=== PATIENT | female | born 1945 | race Caucasian/White ===

== ENCOUNTER 2016-09-14 21:46 | Observation (INO) | payer MEDICARE, OTHER ==
[~2016-09-14] VITALS: Ht 149.9 cm; Wt 50.0 kg
[~2016-09-14 21:46] MED LIST: ANUS25SU PR; ATEN-102 PO; ATOR40TA PO; CHOL1CAP6 PO; CIPR500T2 PO; CLON0.2T PO; FERR324T4 PO; HYDR-3535 PO; LORA-474 PO; ONDA4 PO; OSCA200T PO; PERI8.6T PO; PREPCRE TOP; TAB-TAB PO; TRAM100T19 PO
--- NOTE | 2016-09-14 22:23 | PD ---
HPI Chief Complaint: HYPERKALEMIA Time Seen by Provider: 22:23 Travel History International Travel<30 days: No Contact w/Intl Traveler<30days: No History of Present Illness HPI 71-year-old female with a history of hypertension and hyperlipidemia presents to the emergency department from her long term facility for evaluation of hyperkalemia. Per the documentation from the long term facility the patient had a potassium of 6.9 at the facility today therefore she was sent here for further treatment and evaluation. She denies any complaints. Denies any fever , chills, nausea, vomiting, chest pain, shortness of breath, lightheadedness, dizziness, diarrhea. States that she was taking potassium supplementation until today. No other complaints. PFSH Past Medical History Arthritis: Yes Cancer: No Cardiovascular Problems: No Cerebrovascular Accident: No Endocrine: No Gastrointestinal Disorders: Yes (CONSTIPATION) GERD: Yes Genitourinary: No Hypertension: Yes Musculoskeletal: Yes Neurologic: No Psychiatric: No Reproductive: No Respiratory: No Migraines: No Seizures: No Past Surgical History Abdominal Surgery: No Cardiac Surgery: No Genitourinary Surgery: No Gynecologic Surgery: No Neurologic Surgery: Yes (RIGHT CAROTID ENDARTERECTOMY 2009) Thoracic Surgery: No Other Surgery: Yes Social History Alcohol Use: No Tobacco Use: No Substance Use: No Allergies-Medications (Allergen,Severity, Reaction): Coded Allergies: Maxzide (Verified Allergy, Intermediate, Depletes potasium level, 10/05/15) Succinylcholine (Verified Allergy, Intermediate, unable to waike up after that medicine, 10/05/15) *MDRO Multi-Drug Resistant Organism (Verified Adverse Reaction, Unknown, ) 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 Reported Meds & Prescriptions Reported Meds & Active Scripts Active Atorvastatin 40 mg (Atorvastatin Calcium) 40 Mg Tab 40 Mg PO HS Lortab 10 mg/325 mg (Hydrocodone/Acetaminophen 10 mg/325 mg) 1 Tab 1 Tab PO Q4H PRN Ativan (Lorazepam) 1 Mg Tab 1 Mg PO TID PRN Tramadol HCl ER (Tramadol HCl) 100 Mg Tab 100 Mg PO Q8H PRN Ciprofloxacin HCl (Ciprofloxacin) 500 Mg Tab 500 Mg PO Q12HR Clonidine Hcl (Clonidine HCl) 0.2 Mg Tab 0.2 Mg PO HS Huong-Colace 8.6-50 mg (Sennosides-Docusate Sodium) 1 Tab Tab 2 Tab PO HS Reported Anusol-Hc (Hydrocortisone Acetate) 25 Mg Sup 25 Mg NM QID PRN Preparation H (Yqxtdyije-Ivwcypbegmjkw-Tufkyu) H Cre 1 Applic TOP BID PRN Zofran 4 Mg Tab (Ondansetron Hcl) 4 Mg Tab 4 Mg PO TID PRN Ferrous Sulfate 325 Mg Tab 325 Mg PO TID Vitamin D-3 (Cholecalciferol) 1,000 Unit Tab 1,000 Unit PO DAILY Oscal 500/200 D-3 (Calcium Carbonate-Vitamin D) 1 Tab Tab 2 Tab PO DAILY Multivitamin (Multivitamins) 1 Tab Tab 1 Tab PO DAILY Atenolol 50 Mg Tab 50 Mg PO BID Review of Systems Except as stated in HPI: all other systems reviewed are Neg Physical Exam Narrative GENERAL: Well-nourished and well-developed pleasant female patient in no acute distress who is nontoxic appearing. SKIN: Warm and dry. HEAD: Normocephalic and atraumatic. EYES: No injection, drainage, or hyphema noted. PERRLA. EOMI. ENT: No nasal drainage noted. Oropharynx is clear. NECK: Supple and the trachea is midline. CARDIOVASCULAR: Regular rate and rhythm. RESPIRATORY: Breath sounds are equal bilaterally with no accessory muscle use, wheezing, rhonchi, or crackles. GASTROINTESTINAL: Abdomen is soft, non-tender, and nondistended. MUSCULOSKELETAL: No obvious deformities, swelling, cyanosis, or ecchymosis is present throughout the upper and lower extremities. Patient has full range of motion without any signs of neurovascular compromise. NEUROLOGICAL: Awake, alert, and oriented. Normal speech and gait. Cranial nerves are grossly intact. Data Data Orders Basic Metabolic Panel (Bmp) (09/14/16 22:21) Complete Blood Count With Diff (09/14/16 22:21) Electrocardiogram (09/14/16 22:21) Iv Access Insert/Monitor (09/14/16 22:21) Ecg Monitoring (09/14/16 22:21) Oximetry (09/14/16 22:21) MDM Medical Decision Making Medical Screen Exam Complete: Yes Emergency Medical Condition: Yes Differential Diagnosis Hyperkalemia versus lab error versus dehydration versus other Narrative Course 71-year-old female presents to the emergency department for evaluation of hyperkalemia. Patient is afebrile, vital signs are stable. She has no medical complaints to report at this time. Physical examination is unremarkable. She was sent here by her long term facility for potassium of 6.9. EKG shows normal sinus rhythm with no acute ST elevations or depressions, no peaked T waves. We'll repeat the lab values. Patient signed out to my attending physician Dr. Gong who will assume care of the patient and disposition. Bianca Quintero Sep 14, 2016 22:23
[2016-09-14] MEDS ORDERED: MULT-120 PO (22:29)
[2016-09-14] MEDS ORDERED: LYRI50CA PO (22:29)
[2016-09-14] MEDS ORDERED: K-TA10TA PO (22:29)
[2016-09-14] MEDS ORDERED: SERT-132 PO (22:29)
[2016-09-14] MEDS ORDERED: ATOR40TA16 PO (22:29)
[2016-09-14] MEDS ORDERED: PRESCAP PO (22:29)
[2016-09-14] MEDS ORDERED: MAGN400T2 PO (22:29)
[2016-09-14] MEDS ORDERED: VITA100032 PO (22:29)
[2016-09-14] MEDS ORDERED: LORA1TAB12 PO (22:29)
[2016-09-14] MEDS ORDERED: ATEN25TA PO (22:29)
[2016-09-14] MEDS ORDERED: OSCA200T PO (22:29)
[2016-09-14] MEDS ORDERED: FENT25DI T-DERMAL (22:29)
[2016-09-14] MEDS ORDERED: LOPE2TAB3 PO (22:29)
[2016-09-14] MEDS ORDERED: ZOFR4TAB PO (22:29)
[2016-09-14] MEDS ORDERED: OXYC1TAB36 PO (22:29)
[2016-09-14] MEDS ORDERED: FERR325T PO (22:29)
[2016-09-14 22:34] VITALS: BP 148/75; PULSE 69; RESP 17; O2SAT 97
[2016-09-14 22:41] VITALS: BP 148/75; PULSE 68; RESP 15; O2SAT 97
[2016-09-14 23:25] LABS: BICARBONATE 29.7 MEQ/L (21.0-32.0)
[2016-09-14 23:38] LABS: POTASSIUM 5.3 MEQ/L (3.5-5.1)
--- NOTE | 2016-09-14 23:40 | PD ---
Data Data Last Documented VS Vital Signs Date Time Temp Pulse Resp B/P Pulse Ox O2 Delivery O2 Flow Rate FiO2 09/14/16 22:41 68 15 148/75 97 Room Air Orders Basic Metabolic Panel (Bmp) (09/14/16 22:21) Complete Blood Count With Diff (09/14/16 22:21) Electrocardiogram (09/14/16 22:21) Iv Access Insert/Monitor (09/14/16 22:21) Ecg Monitoring (09/14/16 22:21) Oximetry (09/14/16 22:21) Potassium, Serum (K) (09/14/16 23:45) Oxycodone-Acetamin 5-325 Mg (Percocet (09/15/16 00:30) Sodium Polysty Sulfate Liq (Kayexalate L (09/15/16 02:30) Calcium Gluconate Inj (Calcium Gluconate (09/15/16 02:30) Insulin Human Regular Inj (Novolin R Inj (09/15/16 02:45) Dextrose 50% In Radha (Syr) Inj (D50w (Syr (09/15/16 02:45) Admit Order (Ed Use Only) (09/15/16 ) Place In Observation (09/15/16 ) Vital Signs (Adult) Q4H (09/15/16 02:34) Activity Oob With Assistance (09/15/16 02:34) Manager Regional / Telemetry .CONTINUOUS (09/15/16 02:34) Diet Regular Basic (09/15/16 Breakfast) Sodium Chloride 0.9% Flush (Ns Flush) (09/15/16 02:45) Sodium Chloride 0.9% Flush (Ns Flush) (09/15/16 09:00) Ondansetron Inj (Zofran Inj) (09/15/16 02:45) Bisacodyl Supp (Dulcolax Supp) (09/15/16 02:45) Comprehensive Metabolic Panel (09/15/16 06:00) Complete Blood Count With Diff (09/15/16 06:00) Scd Bilateral/Knee High MADDIE.BID (09/15/16 02:34) Justo Bilateral/Knee High MADDIE.QSHIFT (09/15/16 02:34) Acetaminophen (Tylenol) (09/15/16 02:45) Morphine Inj (Morphine Inj) (09/15/16 02:45) Atorvastatin (Lipitor) (09/15/16 21:00) Fentanyl 25 Mcg Patch.72 Hr (Duragesic (09/15/16 02:45) Ferrous Sulfate (Ferrous Sulfate) (09/15/16 09:00) Lorazepam (Ativan) (09/15/16 02:45) Multivitamins-Minerals Therap (Theragran (09/15/16 09:00) Oxycodone-Acetamin 10-325 Mg (Percocet 1 (09/15/16 02:45) Pregabalin (Lyrica) (09/15/16 09:00) Sertraline (Zoloft) (09/15/16 09:00) Labs Laboratory Tests Test 09/14/16 09/14/16 09/15/16 22:45 23:40 00:35 Sodium Level 139 MEQ/L Potassium Level 5.3 MEQ/L 5.9 MEQ/L Chloride Level 102 MEQ/L Carbon Dioxide Level 29.7 MEQ/L Anion Gap 7 MEQ/L Blood Urea Nitrogen 14 MG/DL Creatinine 0.67 MG/DL Estimat Glomerular Filtration 87 ML/MIN Rate Random Glucose 85 MG/DL Calcium Level 8.9 MG/DL White Blood Count 7.9 TH/MM3 Red Blood Count 3.58 MIL/MM3 Hemoglobin 11.7 GM/DL Hematocrit 34.7 % Mean Corpuscular Volume 96.9 FL Mean Corpuscular Hemoglobin 32.8 PG Mean Corpuscular Hemoglobin 33.8 % Concent Red Cell Distribution Width 13.0 % Platelet Count 170 TH/MM3 Mean Platelet Volume 9.6 FL Neutrophils (%) (Auto) 67.8 % Lymphocytes (%) (Auto) 23.4 % Monocytes (%) (Auto) 6.4 % Eosinophils (%) (Auto) 2.0 % Basophils (%) (Auto) 0.4 % Neutrophils # (Auto) 5.3 TH/MM3 Lymphocytes # (Auto) 1.8 TH/MM3 Monocytes # (Auto) 0.5 TH/MM3 Eosinophils # (Auto) 0.2 TH/MM3 Basophils # (Auto) 0.0 TH/MM3 CBC Comment DIFF FINAL Differential Comment MDM Supervised Visit with MARIANGEL: Yes Narrative Course Patient care assumed from Spring Quintero at 2300. This is a 71-year-old female presents from the [facility] facility for evaluation of hyperkalemia. She is asymptomatic except for her chronic low back pain. Percocet was ordered. Initial potassium in the emergency department was 5.3 with slight hemolysis noted, recheck is 5.9 with no hemolysis noted. An EKG was performed and shows no changes consistent with hyperkalemia. Patient was given calcium chloride as well as Kayexalate. Discussed with Dr. Voss for admission. She is asymptomatic for her hyperkalemia Diagnosis Primary Impression: Hyperkalemia Admitting Information Admitting Physician Requests: Observation Scripts Fentanyl Patch 72 HR 25 Mcg/Hr Patch25 Mcg T-DERMAL Q72H #3 PATCH Ref 0 Prov:Jamil Das MD 09/15/16 Lorazepam 1 Mg Tab1 Mg PO Q8H PRN (ANXIETY) #5 TAB Ref 0 Prov:Jamil Das MD 09/15/16 Oxycodone-Acetaminophen 10-325 mg Tab1 Tab PO q8 PRN (PAIN) #10 TAB Ref 0 Prov:Jamil Das MD 09/15/16 Condition: Stable Rip Gong MD Sep 14, 2016 23:40
[2016-09-14 23:49] LABS: AUTOMATED NEUTROPHIL # 5.3 TH/MM3 (1.8-7.7); BASOPHIL % 0.4 % (0.0-2.0); EOSINOPHIL # 0.2 TH/MM3 (0-0.4); HEMATOCRIT 34.7 % (35.0-46.0); HEMO FLAGS DIFF FINAL; LYMPH % 23.4 % (9.0-44.0); LYMPHOCYTE # 1.8 TH/MM3 (1.0-4.8); MEAN CELL VOLUME 96.9 FL (80.0-100.0); MEAN CORPUSCULAR HEMOGLOBIN 32.8 PG (27.0-34.0); MEAN CORPUSCULAR HGB CONC 33.8 % (32.0-36.0); MONO % 6.4 % (0.0-8.0); NEUT % 67.8 % (16.0-70.0); PLATELET COUNT 170 TH/MM3 (150-450); RED BLOOD COUNT 3.58 MIL/MM3 (4.00-5.30); WHITE BLOOD COUNT 7.9 TH/MM3 (4.0-11.0)
[2016-09-15] MEDS ORDERED: oxyCODONE/ACETAMINOPHEN 5 MG/325 MG TAB PO ONE (00:30)
[2016-09-15] MEDS ORDERED: CALCIUM GLUCONATE INJ 1 GM in DEXTROSE 5% IN WATER 100ML INJ 100 ML IV ONE ×2 (02:30)
[2016-09-15] MEDS ORDERED: SODIUM POLYSTYRENE SULFONATE SUSP 15 GM/60 ML CUP PO ONE (02:30)
[2016-09-15] MEDS ORDERED: ONDANSETRON HCL 4 MG/2 ML VIAL IVP PRN (02:45)
[2016-09-15] MEDS ORDERED: DEXTROSE 50% IN WATER 50 ML SYRINGE IV ONE (02:45)
[2016-09-15] MEDS ORDERED: MORPHINE SULFATE 4 MG/ML INJ IV PRN (02:45)
[2016-09-15] MEDS ORDERED: fentaNYL 25 MCG/HR PATCH T-DERMAL SCH (02:45)
[2016-09-15] MEDS ORDERED: INSULIN HUMAN REGULAR 1,000 UNITS/10 ML VIAL IVP ONE (02:45)
[2016-09-15] MEDS ORDERED: SODIUM CHLORIDE 0.9% FLUSH 5 ML FLUSH FLUSH PRN (02:45)
[2016-09-15] MEDS ORDERED: ACETAMINOPHEN 325 MG TAB PO PRN (02:45)
[2016-09-15] MEDS ORDERED: BISACODYL 10 MG SUPP PR PRN (02:45)
[2016-09-15 03:46] LABS: AUTOMATED NEUTROPHIL # 11.1 TH/MM3 (1.8-7.7); BASOPHIL % 0.2 % (0.0-2.0); EOSINOPHIL # 0.1 TH/MM3 (0-0.4); EOSINOPHIL % 0.8 % (0.0-4.0); HEMATOCRIT 40.2 % (35.0-46.0); HEMO FLAGS DIFF FINAL; LYMPH % 13.3 % (9.0-44.0); LYMPHOCYTE # 1.8 TH/MM3 (1.0-4.8); MEAN CELL VOLUME 97.9 FL (80.0-100.0); MEAN CORPUSCULAR HEMOGLOBIN 32.9 PG (27.0-34.0); MEAN CORPUSCULAR HGB CONC 33.6 % (32.0-36.0); MONO % 5.6 % (0.0-8.0); NEUT % 80.1 % (16.0-70.0); PLATELET COUNT 187 TH/MM3 (150-450); RED CELL DISTRIBUTION WIDTH 12.9 % (11.6-17.2); WHITE BLOOD COUNT 13.8 TH/MM3 (4.0-11.0)
[2016-09-15 03:52] VITALS: BP 135/63; PULSE 65; RESP 17; O2SAT 96
--- NOTE | 2016-09-15 04:08 | HHI.HP ---
[facility] No Primary Care Physician Admission Diagnosis Hyperkalemia Diagnoses: (1) Hyperkalemia Diagnosis: Principal (2) HTN (hypertension) Diagnosis: Principal (3) Chronic back pain Diagnosis: Principal Travel History International Travel<30 Days: No Contact w/Intl Traveler <30 Da: No Traveled to Known Affected Are: No History of Present Illness This is a 71-year-old female with a PMH of HTN, GERD and Chronic Back Pain who was sent to the ER from [facility] for K+ 6.9 per outpatient labs. Pt without complaints at this time. On arrival, BP 148/75, HR 68, O2 sat 97% on RA , Afebrile. CBC unremarkable. K+ 5.3, repeat K+ 5.9. EKG w/ no acute changes. S/p Calcium and Kayexalate in ER. Review of Systems Except as stated in HPI: all other systems reviewed are Neg ROS: 14 point review of systems otherwise negative. 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 No h/o DM or CAD Social History PAST SOCIAL HISTORY: Negative for alcohol, tobacco or drugs. Physical Exam Vital Signs Vital Signs Date Time Temp Pulse Resp B/P Pulse Ox O2 Delivery O2 Flow Rate FiO2 09/15/16 03:52 65 17 135/63 96 Room Air 09/14/16 22:41 68 15 148/75 97 Room Air 09/14/16 22:40 69 15 97 Room Air 09/14/16 22:34 69 17 148/75 97 Physical Exam PE: GENERAL: Very pleasant middle-aged female in no acute distress. HEENT: PERRLA, EOMI. No scleral icterus or conjunctival pallor. No lid lag or facial droop. CARDIOVASCULAR: Regular rate and rhythm. No obvious murmurs to auscultation. No chest tenderness to palpation. RESPIRATORY: No obvious rhonchi or wheezing. Clear to auscultation. Breath sounds equal bilaterally. GASTROINTESTINAL: Abdomen soft, non-tender, nondistended. BS normal. MUSCULOSKELETAL: Extremities without clubbing, cyanosis, or edema. No obvious deformities. NEUROLOGICAL: Awake, alert and oriented x4. No focal neurologic deficits. Moving both upper and lower extremities spontaneously. Laboratory Laboratory Tests Test 09/14/16 09/14/16 09/15/16 09/15/16 22:45 23:40 00:35 03:30 Sodium Level 139 Potassium Level 5.3 5.9 Chloride Level 102 Carbon Dioxide Level 29.7 Anion Gap 7 Blood Urea Nitrogen 14 Creatinine 0.67 Estimat Glomerular Filtration 87 Rate Random Glucose 85 Calcium Level 8.9 White Blood Count 7.9 13.8 Red Blood Count 3.58 4.10 Hemoglobin 11.7 13.5 Hematocrit 34.7 40.2 Mean Corpuscular Volume 96.9 97.9 Mean Corpuscular Hemoglobin 32.8 32.9 Mean Corpuscular Hemoglobin 33.8 33.6 Concent Red Cell Distribution Width 13.0 12.9 Platelet Count 170 187 Mean Platelet Volume 9.6 9.6 Neutrophils (%) (Auto) 67.8 80.1 Lymphocytes (%) (Auto) 23.4 13.3 Monocytes (%) (Auto) 6.4 5.6 Eosinophils (%) (Auto) 2.0 0.8 Basophils (%) (Auto) 0.4 0.2 Neutrophils # (Auto) 5.3 11.1 Lymphocytes # (Auto) 1.8 1.8 Monocytes # (Auto) 0.5 0.8 Eosinophils # (Auto) 0.2 0.1 Basophils # (Auto) 0.0 0.0 CBC Comment DIFF FINAL DIFF FINAL Differential Comment Result Diagram: 09/15/16 0330 09/15/16 0035 Assessment and Plan Problem List: (1) Hyperkalemia ICD Code: E87.5 Status: Acute (2) HTN (hypertension) ICD Code: I10 Status: Acute (3) Chronic back pain ICD Code: M54.9 Status: Acute Assessment and Plan A/P: 1. Hyperkalemia: sent to ER from [facility] for outpatient labs w/ K+ 6.9. K+ 5.3, repeat K+ 5.9. S/p Calcium and Kayexalate in ER. Will give Insulin/D50 , repeat K+ in am. Hold home K+ 10mEq bid. EKG w/ no acute changes, will place on telemetry and continue to monitor. 2. HTN: Controlled. BP 130-140's systolic. Resume home medications, hold B- raisa for now in light of hyperkalemia. 3. Chronic Back Pain: Controlled. Resume home medications, on Fentanyl patch and Percocet. 4. DVT Prophylaxis: SCD/Teds. 5. Social work for d/c planning as needed. 6. Case discussed w/ ER physician at length. Sobia Cavazos MD Sep 15, 2016 04:08
[2016-09-15 04:33] VITALS: BP 103/54; PULSE 67; RESP 18; TEMP 98.1; O2SAT 94
[2016-09-15 04:59] LABS: ALKALINE PHOSPHATASE 99 U/L (45-117); ALT (GPT) 62 U/L (10-53); ANION GAP 6 MEQ/L (5-15); AST (GOT) 36 U/L (15-37); BICARBONATE 30.9 MEQ/L (21.0-32.0); BLOOD UREA NITROGEN 13 MG/DL (7-18); CHLORIDE 103 MEQ/L (98-107); GLOMERULAR FILTRATION RATE 90 ML/MIN (>89); POTASSIUM 4.2 MEQ/L (3.5-5.1); SODIUM (NA) 140 MEQ/L (136-145); TOTAL BILIRUBIN ADULT 0.4 MG/DL (0.2-1.0)
[2016-09-15] MEDS: LORazepam 1 MG TAB PO PRN ×2 (05:21→16:20)
[2016-09-15 08:11] VITALS: BP 140/62; PULSE 65; RESP 18; O2SAT 96
[2016-09-15] MEDS ORDERED: FENT25DI T-DERMAL (08:26)
[2016-09-15] MEDS ORDERED: LORA1TAB12 PO (08:26)
[2016-09-15] MEDS ORDERED: OXYC1TAB36 PO (08:26)
--- NOTE | 2016-09-15 08:51 | HHI.PR ---
Subjective Remarks Follow-up for hyperkalemia. The patient didn't get much sleep last night in the emergency room. She has no specific medical complaints today. She denies any chest pain, shortness of breath, lightheadedness, dizziness. She was put on potassium supplementation by her doctor at her facility. She is happy to go back to her facility today. Objective Vitals Vital Signs Date Time Temp Pulse Resp B/P Pulse Ox O2 Delivery O2 Flow Rate FiO2 09/15/16 08:11 65 18 140/62 96 09/15/16 04:33 98.1 67 18 103/54 94 09/15/16 03:52 65 17 135/63 96 Room Air 09/14/16 22:41 68 15 148/75 97 Room Air 09/14/16 22:40 69 15 97 Room Air 09/14/16 22:34 69 17 148/75 97 I/O 09/14/16 09/14/16 09/14/16 09/15/16 09/15/16 09/15/16 07:00 15:00 23:00 07:00 15:00 23:00 Intake Total 120 ml Balance 120 ml Intake Oral 120 ml Result Diagram: 09/15/16 0330 09/15/16 0330 Objective Remarks GENERAL: Well-developed well-nourished. In no acute distress. SKIN: Warm and dry. No lesions noted. HEENT: Normocephalic. Pupils equal and round. Mucous membranes pink and moist. CARDIOVASCULAR: Regular rate and rhythm. No murmur appreciated. RESPIRATORY: No accessory muscle use. Clear to auscultation. Breath sounds equal bilaterally. GASTROINTESTINAL: Abdomen soft, non-tender, nondistended. Bowel sounds x4. MUSCULOSKELETAL: No obvious deformities. No clubbing or cyanosis. No edema. NEUROLOGICAL: Awake and alert. No focal neurological deficits. Moves upper and lower extremities spontaneously. Normal speech. PSYCHIATRIC: Appropriate mood and affect; insight and judgment normal. A/P Problem List: (1) Hyperkalemia ICD Code: E87.5 Status: Resolved (2) HTN (hypertension) ICD Code: I10 Status: Chronic (3) Chronic back pain ICD Code: M54.9 Status: Chronic Assessment and Plan 71-year-old female with a PMH of HTN, GERD and Chronic Back Pain who was sent to the ED from [facility] for K+ 6.9 on outpatient labs Hyperkalemia: sent to ER from [facility] for outpatient labs w/ K+ 6.9. K+ 5.3, repeat K+ 5.9 in the ED. Given IV Calcium, Kayexalate, insulin, D5. Potassium now 4.2. No EKG changes noted. Discontinue home potassium supplement. HTN: Chronic, stable. Continue home medications. Chronic Back Pain: Chronic, stable. Continue home Fentanyl patch and Percocet. DVT Prophylaxis: SCD/Teds. Discharge Planning Discussed with Dr. Das Discharge patient to SNF Condition on discharge: Improved Heart healthy Diet as tolerated Regular activity Rx written: Renew prescriptions for Percocet, fentanyl patch, Ativan Follow-up with primary care physician Problem Qualifiers (1) HTN (hypertension): Qualified Code: I10 - Essential hypertension Gordon Cooper Sep 15, 2016 08:50
[2016-09-15] MEDS ORDERED: FERROUS SULFATE 325 MG (65 MG ELEMENTAL IRON) TAB PO SCH (09:00)
[2016-09-15] MEDS ORDERED: MULTIVITAMINS/MINERALS THERAPEUTIC TAB PO SCH (09:00)
[2016-09-15] MEDS ORDERED: SODIUM CHLORIDE 0.9% FLUSH 5 ML FLUSH FLUSH SCH (09:00)
[2016-09-15] MEDS ORDERED: PREGABALIN 25 MG CAP PO SCH (09:00)
[2016-09-15] MEDS ORDERED: SERTRALINE HCL 50 MG TAB PO SCH (09:00)
[2016-09-15] MEDS: oxyCODONE/ACETAMINOPHEN 10 MG/325 MG TAB PO PRN ×2 (10:15→14:49)
[2016-09-15 11:01] VITALS: PULSE 83
[2016-09-15 11:44] VITALS: BP 106/53; PULSE 56; RESP 18; O2SAT 95
--- NOTE | 2016-09-15 14:28 | EKG ---
Date Performed: 09/14/2016 Time Performed: 22:27:39 PTAGE: 71 years EKG: Sinus rhythm NORMAL ECG Compared to prior tracing no significant change PREVIOUS TRACING : 11/13/2015 15.05 DOCTOR: Jose Alfredo Ruffin Interpretating Date/Time 09/15/2016 14:26:16
[2016-09-15 16:17] VITALS: RESP 16
[2016-09-15] MEDS ORDERED: ATORVASTATIN 40 MG TAB PO SCH (21:00)
== END 2016-09-15 21:45 | disposition home or self-care (01) ==
LOC: NEPC 21:46 → NEDA 09-15 02:37 → NEPGCP 09-15 04:03
PROVIDERS: ADMIT Hospitalist; ATTEND Hospitalist
DX: E87.5 Hyperkalemia (principal); I10 Essential (primary) hypertension; M54.5 Low back pain; G89.29 Other chronic pain; M19.90 Unspecified osteoarthritis, unspecified site; K21.9 Gastro-esophageal reflux disease without esophagitis
CPT/HCPCS: 80048; 80053; 84132; 85025; 93005; 99285; G0378; J0610; J1815; J2405

== ENCOUNTER 2018-01-15 21:04 | Observation (INO) ==
[2018-01-16] MEDS ORDERED: Sod Chloride 0.9% Inj 1,000 ML IV.SIG ONE (02:44)
--- NOTE | 2018-01-16 03:52 | ED ---
HPI General Stated Complaint: Psych/VCSO Time Seen by Provider: 01/16/18 02:44 Source: RN notes reviewed Mode of arrival: EMS Limitations: altered mental status History of Present Illness HPI Narrative: Patient arrives as a [employer] [employer] from an assisted living facility. Evidently she is "drug seeking." Evidently she has been trying to break in the medicine cabinet at the facility. She broke into another patient's room reportedly. Patient denies Pepto-Bismol. Patient denies iron. She reports black stools for the past few days. She complains of pain related to hemorrhoids. complaint: altered mental status Onset (ago): unknown Duration: constant Relieving factors: none Exacerbating factors: none Context: other (Chronic pain on opioid therapy, Percocet daily) Related Data Allergies Allergy/AdvReac Type Severity Reaction Status Date / Time hydrochlorothiazide Allergy Intermediate Depletes Verified 01/16/18 02:02 potasium level succinylcholine Allergy Intermediate unable to Verified 01/16/18 02:02 waike up after that medicine triamterene Allergy Intermediate Depletes Verified 01/16/18 02:02 potasium level *MDRO Multi-Drug Resistant AdvReac Unknown Abdominal Uncoded 01/16/18 02:02 Organism Pain Review of Systems ROS Unobtainable unobtainable due to mental condition PMFSH Social History Social History Recent Travel in [facility] within the Last 8 Weeks: No Recent Out of Country Travel within the Last 8 Weeks: No Exam Narrative Exam Narrative: GENERAL: 72-year-old female no acute distress, patient has black stool in the diaper SKIN: Focused skin assessment warm/dry. HEAD: Atraumatic. Normocephalic. EYES: Pupils equal and round. No scleral icterus. No injection or drainage. ENT: No nasal bleeding or discharge. Mucous membranes pink and moist. NECK: Trachea midline. No JVD. CARDIOVASCULAR: Regular rate and rhythm. No murmur appreciated. RESPIRATORY: No accessory muscle use. Clear to auscultation. Breath sounds equal bilaterally. GASTROINTESTINAL: Abdomen soft, non-tender, nondistended. Hepatic and splenic margins not palpable. MUSCULOSKELETAL: No obvious deformities. No clubbing. No cyanosis. No edema. NEUROLOGICAL: Awake and alert. No focal cranial nerve deficit. Moving all extremities normally. PSYCHIATRIC: Reasonably cooperative Course Initial Documented Vital Signs Temperature 98 F 01/16/18 02:02 Blood Pressure 200/84 H 01/16/18 02:02 Pulse Oximetry 97 01/16/18 02:02 Last Documented Vital Signs Temperature 98 F 01/16/18 02:02 Blood Pressure 200/84 H 01/16/18 02:02 Pulse Oximetry 97 01/16/18 02:02 Medical Decision Making MDM Narrative Medical decision making narrative: Patient has black stool. Guaiac assessment at the bedside was faintly positive although the stool was black. Workup thus far is grossly unremarkable. The patient does also arrive as a [place] [employer] as well. She has no suicidal or homicidal ideation. She did evidently try to break into the [facility] medicine cabinet. Call placed to the hospitalist service, Dr. Angel for medical admission for investigation into GI bleed. Lab Data Lab results reviewed: Yes I reviewed the patient's lab results. Result diagrams: 01/16/18 03:30 01/16/18 03:30 Lab Results 01/16/18 01/16/18 01/16/18 Range/Units 03:07 03:30 03:30 WBC 12.0 H (4.0-11.0) th/mm3 RBC 3.87 L (4.00-5.30) mil/mm3 Hgb 12.9 (11.6-15.3) gm/dL Hct 37.9 (35.0-46.0) % MCV 98.0 (80.0-100.0) fL MCH 33.4 (27.0-34.0) pg MCHC 34.1 (32.0-36.0) % RDW 13.5 (11.6-17.2) % Plt Count 335 (150-450) th/mm3 MPV 10.1 (7.0-11.0) fL Neut % (Auto) 81.1 H (16.0-70.0) % Lymph % (Auto) 12.4 (9.0-44.0) % [place] % (Auto) 5.7 (0.0-8.0) % Eos % (Auto) 0.2 (0.0-4.0) % Baso % (Auto) 0.6 (0.0-2.0) % Neut # (Auto) 9.7 H (1.8-7.7) th/mm3 Lymph # (Auto) 1.5 (1.0-4.8) th/mm3 [place] # (Auto) 0.7 (0.0-0.9) th/mm3 Eos # (Auto) 0.0 (0.0-0.4) th/mm3 Baso # (Auto) 0.1 (0.0-0.2) th/mm3 WBC Differential . Differential Comment Auto diff final PT 10.5 (9.8-11.6) sec INR 1.0 Ratio APTT 22.7 L (24.3-30.1) sec Sodium (136-145) meq/L Potassium (3.5-5.1) meq/L Chloride (98-107) meq/L Carbon Dioxide (21.0-32.0) meq/L Anion Gap (5-15) meq/L BUN (7-18) mg/dL Creatinine (0.50-1.00) mg/dL Estimated GFR (>89) mL/min Random Glucose (74-106) mg/dL Calcium (8.5-10.1) mg/dL Total Bilirubin (0.2-1.0) mg/dL AST (15-37) U/L ALT (10-53) U/L Alkaline Phosphatase (45-117) U/L Total Protein (6.4-8.2) g/dL Albumin (3.4-5.0) g/dL Blood Type Blood Type Confirm A Positive 01/16/18 01/16/18 Range/Units 03:30 03:30 WBC (4.0-11.0) th/mm3 RBC (4.00-5.30) mil/mm3 Hgb (11.6-15.3) gm/dL Hct (35.0-46.0) % MCV (80.0-100.0) fL MCH (27.0-34.0) pg MCHC (32.0-36.0) % RDW (11.6-17.2) % Plt Count (150-450) th/mm3 MPV (7.0-11.0) fL Neut % (Auto) (16.0-70.0) % Lymph % (Auto) (9.0-44.0) % [place] % (Auto) (0.0-8.0) % Eos % (Auto) (0.0-4.0) % Baso % (Auto) (0.0-2.0) % Neut # (Auto) (1.8-7.7) th/mm3 Lymph # (Auto) (1.0-4.8) th/mm3 [place] # (Auto) (0.0-0.9) th/mm3 Eos # (Auto) (0.0-0.4) th/mm3 Baso # (Auto) (0.0-0.2) th/mm3 WBC Differential Differential Comment PT (9.8-11.6) sec INR Ratio APTT (24.3-30.1) sec Sodium 142 (136-145) meq/L Potassium 4.3 (3.5-5.1) meq/L Chloride 103 (98-107) meq/L Carbon Dioxide 30.0 (21.0-32.0) meq/L Anion Gap 9 (5-15) meq/L BUN 14 (7-18) mg/dL Creatinine 0.40 L (0.50-1.00) mg/dL Estimated GFR Greater than 89 (>89) mL/min Random Glucose 85 (74-106) mg/dL Calcium 8.9 (8.5-10.1) mg/dL Total Bilirubin 0.5 (0.2-1.0) mg/dL AST 48 H (15-37) U/L ALT 20 (10-53) U/L Alkaline Phosphatase 52 (45-117) U/L Total Protein 7.0 (6.4-8.2) g/dL Albumin 3.5 (3.4-5.0) g/dL Blood Type A Positive Blood Type Confirm Discharge Plan Discharge Disposition Patient Disposition: 30 Still Patient Physicians Team ED Provider: Micheal Del Valle Primary Care Provider: UNKNOWN, Status ED Status: With Doctor
[2018-01-16 03:58] LABS: Baso # (Auto) 0.1 th/mm3 (0.0-0.2); Baso % (Auto) 0.6 % (0.0-2.0); Eos % (Auto) 0.2 % (0.0-4.0); Hematocrit 37.9 % (35.0-46.0); Hemoglobin 12.9 gm/dL (11.6-15.3); Lymph # (Auto) 1.5 th/mm3 (1.0-4.8); Lymph % (Auto) 12.4 % (9.0-44.0); Mean Corpuscular HGB Conc 34.1 % (32.0-36.0); Mean Corpuscular Hemoglobin 33.4 pg (27.0-34.0); Mean Platelet Volume 10.1 fL (7.0-11.0); Mono # (Auto) 0.7 th/mm3 (0.0-0.9); Mono % (Auto) 5.7 % (0.0-8.0); Neut # (Auto) 9.7 th/mm3 (1.8-7.7); Neut % (Auto) 81.1 % (16.0-70.0); Platelet Count 335 th/mm3 (150-450); Red Blood Count 3.87 mil/mm3 (4.00-5.30); Red Cell Distribution Width 13.5 % (11.6-17.2)
[2018-01-16 04:11] LABS: Activated Partial Thrombo Time 22.7 sec (24.3-30.1); Prothrombin Time 10.5 sec (9.8-11.6)
[2018-01-16 04:30] LABS: Alkaline Phosphatase 52 U/L (45-117)
[2018-01-16 04:43] LABS: Alanine Aminotransferase 20 U/L (10-53); Albumin 3.5 g/dL (3.4-5.0); Anion Gap 9 meq/L (5-15); Aspartate Aminotransferase 48 U/L (15-37); Blood Urea Nitrogen 14 mg/dL (7-18); Calcium 8.9 mg/dL (8.5-10.1); Chloride 103 meq/L (98-107); Glomerular Filtration Rate Greater Than 89 mL/min (>89); Glucose,Random 85 mg/dL (74-106); Potassium 4.3 meq/L (3.5-5.1); Sodium 142 meq/L (136-145)
--- NOTE | 2018-01-16 13:32 | P.HP ---
History of Present Illness Primary Care Physician: UNKNOWN Chief Complaint: my hemorrhoids are hurting me History of Present Illness: 72-year-old female for past medical history of diabetes type 2, chronic pain syndrome was brought in as a Sarmiento act from local assisted living facility for initial evaluation for possible GI bleed as patient has black stool. However per ED physician a false-positive fecal occult blood tests stand from patient taking iron supplement, which patient denied. During my exam , patient was complaining of hemorrhoidal pain and requesting something to take care of the pain. States she is on some narcotics prescribed by her PCP. Apparently, in her current assisted living facility, patient has been trying to break in the medicine cabinet. Per EMR, she broke into another patient's room. Since admission, patient has been refusing medical care - Diagnosis (1) Delusion (2) Bizarre behavior (3) Drug-seeking behavior Inpatient Certification: I certify that the inpatient services were ordered in accordance with Medicare regulations governing the order. This includes certification that hospital inpatient services are reasonable and necessary and in the case of services not specified as inpatient-only under 42 CFR 419.22(n), that they are appropriately provided as inpatient services in accordance to with the 2-midnight benchmark under 43 CFR 412.3(e) Review of Systems All other systems reviewed negative except as stated in HPI PMFSH - History History Provided By: Patient - Medical History Medical History: Medical History (Last Reviewed 01/16/18 @ 10:35 by Enrrique Walker) Chronic pain syndrome Dementia Diabetes Migraine with aura Osteoporosis Weight loss - Tobacco History Second Hand Smoke Exposure: No Tobacco Use In Past 30 Days: Yes Smoking Status: Never smoker Tobacco Type: Cigarettes - Alcohol History How Often Do You Have a Drink Containing Alcohol: Never - Substance Use History Substance History: No History of Abuse - Travel History Recent Travel in the [place] Within the Last 8 Weeks: No Recent Travel Out of the Country Within the Last 8 Weeks: No - Immunization History Tetanus Immunization: >5 Years Hx Influenza Vaccine This Season: Yes Medications and Allergies Active Medications: Active Medications Sodium Chloride (Ns Flush) 2 ml IV.FLUSH PRN PRN PRN Reason: FLUSH AFTER USING IV ACCESS Allergies Allergy/AdvReac Type Severity Reaction Status Date / Time hydrochlorothiazide Allergy Intermediate Depletes Verified 01/16/18 05:05 potasium level succinylcholine Allergy Intermediate unable to Verified 01/16/18 05:05 waike up after that medicine triamterene Allergy Intermediate Depletes Verified 01/16/18 05:05 potasium level *MDRO Multi-Drug Resistant AdvReac Unknown Abdominal Uncoded 01/16/18 02:02 Organism Pain Home Medications Medication Instructions Recorded Confirmed Type Percocet 01/16/18 01/16/18 History acetaminophen 01/16/18 History alprazolam [Xanax] 0.25 mg PO BID 01/16/18 01/16/18 History atenolol 12.5 mg PO DAILY 01/16/18 01/16/18 History atorvastatin 40 mg PO DAILY 01/16/18 01/16/18 History donepezil 10 mg PO DAILY 01/16/18 01/16/18 History fentanyl 1 patch TRANSDERMAL Q72H 01/16/18 01/16/18 History ferrous sulfate 325 mg PO BID 01/16/18 01/16/18 History loratadine 10 mg PO DAILY 01/16/18 01/16/18 History oxycodone-acetaminophen [Percocet] 1 tab PO Q4-6H PRN 01/16/18 01/16/18 History sennosides [senna] 8.6 mg PO BID PRN 01/16/18 01/16/18 History sertraline 75 mg PO DAILY 01/16/18 01/16/18 History tiotropium bromide [Spiriva with 18 mcg INHALATION 01/16/18 History HandiHaler] Exam Vital signs: Vital Signs 01/16/18 02:02 01/16/18 03:00 01/16/18 04:00 Temperature 98 F Pulse Rate 60 Respiratory Rate 14 Blood Pressure 200/84 H 135/62 Pulse Oximetry 97 97 01/16/18 06:38 01/16/18 08:00 01/16/18 12:00 Temperature 98.0 F 98.1 F 98.7 F Pulse Rate 71 66 79 Respiratory Rate 18 16 16 Blood Pressure 150/67 H 136/60 146/66 H Pulse Oximetry 98 96 96 Intake & Output 01/15/18 01/16/18 01/16/18 18:59 06:59 18:59 Weight 41.816 kg Other: Weight On Admission 41.816 kg Narrative: GENERAL: NAD SKIN: Warm and dry. HEAD: Atraumatic. Normocephalic. EYES: Pupils equal and round. No scleral icterus. No injection or drainage. ENT: No nasal bleeding or discharge. Mucous membranes pink and moist. NECK: Trachea midline. No JVD. CARDIOVASCULAR: Regular rate and rhythm. RESPIRATORY: No accessory muscle use. Clear to auscultation. Breath sounds equal bilaterally. GASTROINTESTINAL: Abdomen soft, non-tender, nondistended. Hepatic and splenic margins not palpable. MUSCULOSKELETAL: Extremities without clubbing, cyanosis, or edema. No obvious deformities. NEUROLOGICAL: Awake and alert. No obvious cranial nerve deficits. Motor grossly within normal limits. Five out of 5 muscle strength in the arms and legs. Normal speech. PSYCHIATRIC: flat affect; insight and judgment abnormal. Results - Labs CBC & Chem 7: 01/16/18 03:30 01/16/18 03:30 Labs: Laboratory Results - last 24 hr 01/16/18 01/16/18 01/16/18 03:07 03:30 03:30 WBC 12.0 H RBC 3.87 L Hgb 12.9 Hct 37.9 MCV 98.0 MCH 33.4 MCHC 34.1 RDW 13.5 Plt Count 335 MPV 10.1 Neut % (Auto) 81.1 H Lymph % (Auto) 12.4 Blanco % (Auto) 5.7 Eos % (Auto) 0.2 Baso % (Auto) 0.6 Neut # (Auto) 9.7 H Lymph # (Auto) 1.5 Blanco # (Auto) 0.7 Eos # (Auto) 0.0 Baso # (Auto) 0.1 WBC Differential . Differential Comment Auto diff final PT 10.5 INR 1.0 APTT 22.7 L Sodium Potassium Chloride Carbon Dioxide Anion Gap BUN Creatinine Estimated GFR Random Glucose Calcium Total Bilirubin AST ALT Alkaline Phosphatase Total Protein Albumin Blood Type Blood Type Confirm A Positive Blood Type Recheck Antibody Screen 01/16/18 01/16/18 03:30 03:30 WBC RBC Hgb Hct MCV MCH MCHC RDW Plt Count MPV Neut % (Auto) Lymph % (Auto) Blanco % (Auto) Eos % (Auto) Baso % (Auto) Neut # (Auto) Lymph # (Auto) Blanco # (Auto) Eos # (Auto) Baso # (Auto) WBC Differential Differential Comment PT INR APTT Sodium 142 Potassium 4.3 Chloride 103 Carbon Dioxide 30.0 Anion Gap 9 BUN 14 Creatinine 0.40 L Estimated GFR Greater than 89 Random Glucose 85 Calcium 8.9 Total Bilirubin 0.5 AST 48 H ALT 20 Alkaline Phosphatase 52 Total Protein 7.0 Albumin 3.5 Blood Type A Positive Blood Type Confirm Blood Type Recheck Not needed Antibody Screen Negative Caprini VTE Risk Assessment Caprini VTE Risk Assessment: Moderate/High Risk (score >= 2) Caprini Risk Assessment Model: Point Value = 1 Point Value = 2 Point Value = 3 Point Value = 5 Age 41-60 Minor surgery BMI > 25 kg/m2 Swollen legs Varicose veins or History of unexplained or recurrent spontaneous Oral contraceptives or hormone replacement Sepsis (< 1 month) Serious lung disease, including pneumonia (< 1 month) Abnormal pulmonary function Acute myocardial infarction Congestive heart failure (< 1 month) History of inflammatory bowel disease Medical patient at bed rest Age 61-74 Arthroscopic surgery Major open surgery (> 45 min) Laparoscopic surgery (> 45 min) Malignancy Confined to bed (> 72 hours) Immobilizing plaster cast Central venous access Age >= 75 History of VTE Family history of VTE Factor V Leiden Prothrombin [id number] Lupus anticoagulant Anticardiolipin antibodies Elevated serum homocysteine Heparin-induced thrombocytopenia Other congenital or acquired thrombophilia Stroke (< 1 month) Elective arthroplasty Hip, pelvis, or leg fracture Acute spinal cord injury (< 1 month) Prophylaxis Regimen: Total Risk Factor Score Risk Level Prophylaxis Regimen 0-1 Low Early ambulation 2 Moderate Order ONE of the following: *Sequential Compression Device (SCD) *Heparin 5000 units SQ BID 3-4 Higher Order ONE of the following medications: *Heparin 5000 units SQ TID *Enoxaparin/Lovenox 40 mg SQ daily (WT < 150 kg, CrCl > 30 mL/min) *Enoxaparin/Lovenox 30 mg SQ daily (WT < 150 kg, CrCl > 10-29 mL/min) *Enoxaparin/Lovenox 30 mg SQ BID (WT < 150 kg, CrCl > 30 mL/min) AND/OR *Sequential Compression Device (SCD) 5 or more Highest Order ONE of the following medications: *Heparin 5000 units SQ TID (Preferred with Epidurals) *Enoxaparin/Lovenox 40 mg SQ daily (WT < 150 kg, CrCl > 30 mL/min) *Enoxaparin/Lovenox 30 mg SQ daily (WT < 150 kg, CrCl > 10-29 mL/min) *Enoxaparin/Lovenox 30 mg SQ BID (WT < 150 kg, CrCl > 30 mL/min) AND *Sequential Compression Device (SCD) Assessment and Plan - Assessment (1) Delusion Code(s): F22 - Delusional disorders Status: Acute (2) Bizarre behavior Code(s): R46.2 - Strange and inexplicable behavior Status: Acute (3) Drug-seeking behavior Code(s): Z76.5 - Malingerer [conscious simulation] Status: Acute - Plan 72-year-old female Initially admitted for GI bleed H&H currently stable, and patient had a false positive FOBT likely due to iron supplements At this point, there is no need for GI consultation Delusional Bizarre behavior Acute mood disorder Consult psychiatry Continue Sarmiento act Anxiety and depression Resume outpatient medications Hyperlipidemia, hypertension, dementia Resume outpatient medications DVT prophylaxis: Bilateral SCDs Patient is medically clear for discharge to inpatient psychiatry
[2018-01-16] MEDS: Ferrous Sulfate 325 MG Tablet PO SCH (21:58)
[2018-01-17] MEDS ORDERED: Acetaminophen 325 MG Tablet PO ONE (02:42)
[2018-01-17] MEDS: Witch Hazel 50%/Glyderin 12.5% 40 Pad Jar RECTAL PRN (06:47)
[2018-01-17] MEDS: Ferrous Sulfate 325 MG Tablet PO SCH ×2 (11:44→20:25)
[2018-01-17] MEDS: Loratadine 10 MG Tablet PO SCH (11:44)
[2018-01-17] MEDS: Atenolol 25 MG Tablet PO SCH (11:45)
[2018-01-17] MEDS: Sertraline 50 MG Tablet PO SCH (11:46)
--- NOTE | 2018-01-17 13:43 | P.PN ---
Subjective Interval history: Follow-up hemorrhoidal pain/bizarre behavior January 17, 2018-patient seen and examined, requesting pain relief for her hemorrhoid. Otherwise stable Physical Exam Vital signs: Vital Signs 01/16/18 16:00 01/16/18 20:00 01/17/18 00:00 Temperature 98.2 F 98.0 F 97.9 F Pulse Rate 93 H 84 76 Respiratory Rate 18 18 Blood Pressure 138/60 116/55 L 137/75 Pulse Oximetry 96 94 L 96 01/17/18 00:30 01/17/18 03:21 01/17/18 04:00 Temperature 98.3 F Pulse Rate 79 Respiratory Rate 18 Blood Pressure 156/68 H Pulse Oximetry 97 Intake & Output 01/16/18 01/17/18 01/17/18 18:59 06:59 18:59 Weight 41.816 kg 41.8 kg Other: # Voids 3 6 Date of Last Bowel Movement 01/16/18 01/16/18 # Bowel Movements 6 # Incontinent Bowel Movements 3 Weight On Admission 41.816 kg Narrative: GENERAL: NAD SKIN: Warm and dry. HEAD: Normocephalic. EYES: No scleral icterus. No injection or drainage. NECK: Supple, trachea midline. No JVD or lymphadenopathy. CARDIOVASCULAR: Regular rate and rhythm without murmurs, gallops, or rubs. RESPIRATORY: Breath sounds equal bilaterally. No accessory muscle use. GASTROINTESTINAL: Abdomen soft, non-tender, nondistended. MUSCULOSKELETAL: No cyanosis, or edema. BACK: Nontender without obvious deformity. No CVA tenderness. Results - Labs CBC & Chem 7: 01/16/18 03:30 01/16/18 03:30 Assessment and Plan - Assessment (1) Delusion Code(s): F22 - Delusional disorders Status: Acute (2) Bizarre behavior Code(s): R46.2 - Strange and inexplicable behavior Status: Acute (3) Drug-seeking behavior Code(s): Z76.5 - Malingerer [conscious simulation] Status: Acute - Plan 72-year-old female Initially admitted for GI bleed H&H currently stable, and patient had a false positive FOBT likely due to iron supplements At this point, there is no need for GI consultation Delusional Bizarre behavior Acute mood disorder Awaiting from consultation from psychiatry Continue Sarmiento act Anxiety and depression Continue outpatient medications Hyperlipidemia, hypertension, dementia Continue outpatient medications DVT prophylaxis: Bilateral SCDs Patient is medically clear for discharge to inpatient psychiatry versus discharge back to [facility]
--- NOTE | 2018-01-17 18:47 | P.CONPSY ---
Provisional Diagnosis Admission Date: January 16, 2018 05:12 Arthur I.: Adjustment disorder with disturbance in conduct History of Present Illness Service: Psychiatry Consult date: 01/17/18 Reason for Consult: Sarmiento act - delusional, bizarre, acute mood disorder Primary Care Provider: UNKNOWN Chief Complaint: my hemorrhoids are hurting me History of Present Illness: Patient is a 72-year-old woman, , 3 adult children, unemployed on Social Security income is SSI, domiciled an assisted living facility for 2 and half years, with no previous psychiatric history no previous psychiatric diagnoses, hospitalizations, suicide attempts or self-injurious behavior, with no reported substance use history currently admitted to the medical service for possible GI bleed and currently under Sarmiento act from assisted living facility "drug seeking" S patient attempted to break into the medicine cabinet that the facility which psychiatry was consulted for evaluation. Patient was found lying hospital bed noted B, cooperative. Patient is alert and oriented 3 stating that she was brought in by the Internal Control Manager but is unable to recall reasons that led to her hospitalization. Patient states that her mood has been "fine" denying any depressive manic or psychotic symptoms. Patient was reminded of the Sarmiento act description of her having attempted to break into medicine For her medications which she then admitted to having tried stating that the nurse at the facility refused to give them to her and that she was due for her medications. Patient states the medications that were in the medicine cabinet were for sleep and for pain. Patient states that she will not try to break into the medicine cabinet again but expecting to be continued on her medications upon discharge. Patient also noted to have some confusion during interview as she later did not remember recalling that she had been living in assisted living facility stated that she would like to go home. Patient denies any perceptional service of delusions at this time. Family psychiatric history: Denies Past psychiatric history: Denies any previous psychiatric diagnoses, hospitalizations, suicide attempt or self interest behavior. Substance use history: Tobacco (+), denies any alcohol or drug use. Past medical history: Denies reports receiving pain medications for her hemorrhoids and Ativan for sleep. Allergies: Hydrochlorothiazide, succinylcholine, triamterene Social history: , 3 adult children, unemployed on SSI, domiciled recently an assisted living facility, no legal history. PMFSH - History History Provided By: Patient - Medical History Medical History: Medical History (Last Reviewed 01/16/18 @ 10:35 by Enrrique Walker) Chronic pain syndrome Dementia Diabetes Migraine with aura Osteoporosis Weight loss - Tobacco History Second Hand Smoke Exposure: No Tobacco Use In Past 30 Days: Yes Smoking Status: Never smoker Tobacco Type: Cigarettes - Alcohol History How Often Do You Have a Drink Containing Alcohol: Never - Substance Use History Substance History: No History of Abuse - Travel History Recent Travel in the [place] Within the Last 8 Weeks: No Recent Travel Out of the Country Within the Last 8 Weeks: No - Immunization History Tetanus Immunization: >5 Years Hx Influenza Vaccine This Season: Yes Medications and Allergies Active Medications: Active Medications Atenolol (Tenormin) 12.5 mg PO DAILY [facility] Last Admin: 01/17/18 11:45 Dose: 12.5 mg Atorvastatin Calcium (Lipitor) 40 mg PO DAILY [facility] Donepezil HCl (Aricept) 10 mg PO DAILY [facility] Last Admin: 01/17/18 11:44 Dose: 10 mg Ferrous Sulfate (Ferosul) 325 mg PO BID [facility] Last Admin: 01/17/18 11:44 Dose: 325 mg Loratadine (Claritin) 10 mg PO DAILY [facility] Last Admin: 01/17/18 11:44 Dose: 10 mg Miscellaneous (Pill Splitter) 1 each OTHER UNSCH [facility] Sertraline HCl (Zoloft) 75 mg PO DAILY [facility] Last Admin: 01/17/18 11:46 Dose: 75 mg Sodium Chloride (Ns Flush) 2 ml IV.FLUSH PRN PRN PRN Reason: FLUSH AFTER USING IV ACCESS Tiotropium Clifford (Spiriva 18 Mcg Inh) 18 mcg INH DAILY [facility] Witch Alayna/Glycerin (Tucks Pads) 1 applicatio RECTAL PRN PRN PRN Reason: hemorroid pad Last Admin: 01/17/18 06:47 Dose: 1 applicatio Allergies Allergy/AdvReac Type Severity Reaction Status Date / Time hydrochlorothiazide Allergy Intermediate Depletes Verified 01/16/18 05:05 potasium level succinylcholine Allergy Intermediate unable to Verified 01/16/18 05:05 waike up after that medicine triamterene Allergy Intermediate Depletes Verified 01/16/18 05:05 potasium level *MDRO Multi-Drug Resistant AdvReac Unknown Abdominal Uncoded 01/16/18 02:02 Organism Pain Home Medications Medication Instructions Recorded Confirmed Type Percocet 01/16/18 01/16/18 History acetaminophen 01/16/18 History alprazolam [Xanax] 0.25 mg PO BID 01/16/18 01/16/18 History atenolol 12.5 mg PO DAILY 01/16/18 01/16/18 History atorvastatin 40 mg PO DAILY 01/16/18 01/16/18 History donepezil 10 mg PO DAILY 01/16/18 01/16/18 History fentanyl 1 patch TRANSDERMAL Q72H 01/16/18 01/16/18 History ferrous sulfate 325 mg PO BID 01/16/18 01/16/18 History loratadine 10 mg PO DAILY 01/16/18 01/16/18 History oxycodone-acetaminophen [Percocet] 1 tab PO Q4-6H PRN 01/16/18 01/16/18 History sennosides [senna] 8.6 mg PO BID PRN 01/16/18 01/16/18 History sertraline 75 mg PO DAILY 01/16/18 01/16/18 History tiotropium bromide [Spiriva with 18 mcg INHALATION 01/16/18 History HandiHaler] Exam Vital signs: Vital Signs 01/16/18 20:00 01/17/18 00:00 01/17/18 00:30 Temperature 98.0 F 97.9 F Pulse Rate 84 76 Respiratory Rate 18 18 18 Blood Pressure 116/55 L 137/75 Pulse Oximetry 94 L 96 01/17/18 03:21 01/17/18 04:00 01/17/18 08:00 Temperature 98.3 F 98.6 F Pulse Rate 79 95 H Respiratory Rate 18 18 16 Blood Pressure 156/68 H Pulse Oximetry 97 01/17/18 10:58 01/17/18 12:00 Temperature 97.6 F Pulse Rate 96 H Respiratory Rate 16 Blood Pressure 130/61 Pulse Oximetry 97 96 Intake & Output 01/16/18 01/17/18 01/17/18 18:59 06:59 18:59 Weight 41.816 kg 41.8 kg Other: # Voids 3 6 Date of Last Bowel Movement 01/16/18 01/16/18 # Bowel Movements 6 1 # Incontinent Bowel Movements 3 Weight On Admission 41.816 kg Mental Status Examination Appearance: Appropriate Consciousness: Alert Orientation: Person, Place, Date/Time Speech: Unremarkable Language: Adequate Fund of Knowledge: Inadequate Attention and Concentration: Adequate Memory: Impaired, Remote (intact) Mood: Appropriate Affect: Appropriate Thought Process & Associations: Intact Thought Content: Appropriate Hallucination Type: None Delusion Type: None Suicidal Ideation: No Suicidal Plan: No Suicidal Intention: No Homicidal Ideation: No Homicidal Plan: No Homicidal Intention: No Insight: Poor Judgment: Impulsive Assessment and Plan - Assessment (1) Adjustment disorder with disturbance of conduct Code(s): F43.24 - Adjustment disorder with disturbance of conduct Status: Acute - Plan Plan: Estimated LOS: [] days Patient is a 72-year-old woman with no formal past psychiatric history , currently admitted to the medical service for possibility of GI bleed but was brought in under Sarmiento act by her assisted living facility after patient attempted to break into the medicine cabinet at the facility seeking her pain and sleep medicines which psychiatry was consulted for evaluation. Patient at this time noted to have some impairment in memory but at this time no evidence of delusions, psychosis, or any mood symptoms although patient is focused on receiving her pain and sleep medications. Patient at this time does not meet criteria for inpatient psychiatric hospitalization, will require referral to an assisted living facility as patient likely having neurocognitive deficits. Sarmiento act will be lifted. Consult appreciated. Justification for Continued Inpatient Stay: At risk of further decompensation a lower level of care.
[2018-01-17] MEDS: Tiotropium Bromide 18 MCG/ACT Inhaler INH SCH (20:21)
[2018-01-18] MEDS: Witch Hazel 50%/Glyderin 12.5% 40 Pad Jar RECTAL PRN ×2 (05:43→09:05)
[2018-01-18] MEDS: Sertraline 50 MG Tablet PO SCH (08:39)
[2018-01-18] MEDS: Loratadine 10 MG Tablet PO SCH (08:39)
[2018-01-18] MEDS: Ferrous Sulfate 325 MG Tablet PO SCH ×2 (08:39→20:36)
[2018-01-18] MEDS: Atenolol 25 MG Tablet PO SCH (08:39)
[2018-01-18] MEDS: Tiotropium Bromide 18 MCG/ACT Inhaler INH SCH (08:39)
--- NOTE | 2018-01-18 12:25 | P.PN ---
Subjective Interval history: Follow-up hemorrhoidal pain/bizarre behavior January 17, 2018-patient seen and examined, requesting pain relief for her hemorrhoid. Otherwise stable January 18, 2018-patient seen and examined, refusing to take her meds. Requesting medication for hemorrhoidal pain. Otherwise no other issues. Sarmienot act lifted by psychiatry. Physical Exam Vital signs: Vital Signs 01/17/18 19:28 01/17/18 20:35 01/18/18 00:40 Temperature 98 F 98.5 F 98.5 F Pulse Rate 68 74 81 Respiratory Rate 16 16 Blood Pressure 117/55 L 149/64 H 126/59 L Pulse Oximetry 96 96 95 01/18/18 01:54 01/18/18 08:00 01/18/18 08:44 Temperature 98 F Pulse Rate 85 Respiratory Rate 18 16 Blood Pressure 136/62 Pulse Oximetry 95 95 01/18/18 09:00 01/18/18 09:51 01/18/18 11:15 Temperature 99.2 F Pulse Rate 97 H Respiratory Rate 16 17 16 Blood Pressure 128/57 L Pulse Oximetry 97 01/18/18 11:25 Temperature Pulse Rate Respiratory Rate 16 Blood Pressure Pulse Oximetry Intake & Output 01/17/18 01/18/18 01/18/18 18:59 06:59 18:59 Intake Total 240 / 240 Balance 240 / 240 Weight 41.9 kg Intake: Oral 240 / 240 Other: # Incontinent Voids 1 Date of Last Bowel Movement 01/17/18 01/18/18 # Bowel Movements 1 # Incontinent Bowel Movements 1 Narrative: GENERAL: NAD SKIN: Warm and dry. HEAD: Normocephalic. EYES: No scleral icterus. No injection or drainage. NECK: Supple, trachea midline. No JVD or lymphadenopathy. CARDIOVASCULAR: Regular rate and rhythm without murmurs, gallops, or rubs. RESPIRATORY: Breath sounds equal bilaterally. No accessory muscle use. GASTROINTESTINAL: Abdomen soft, non-tender, nondistended. MUSCULOSKELETAL: No cyanosis, or edema. BACK: Nontender without obvious deformity. No CVA tenderness. Results - Labs CBC & Chem 7: 01/16/18 03:30 01/16/18 03:30 - Procedures None Assessment and Plan - Assessment (1) Delusion Code(s): F22 - Delusional disorders Status: Resolved (2) Bizarre behavior Code(s): R46.2 - Strange and inexplicable behavior Status: Acute (3) Drug-seeking behavior Code(s): Z76.5 - Malingerer [conscious simulation] Status: Chronic - Plan 72-year-old female Initially admitted for GI bleed H&H currently stable, and patient had a false positive FOBT likely due to iron supplements At this point, there is no need for GI consultation Bizarre behavior Acute mood disorder Appreciate input from psychiatry, and Sarmiento act was lifted Anxiety and depression Continue outpatient medications Hyperlipidemia, hypertension, dementia Continue outpatient medications DVT prophylaxis: Bilateral SCDs
--- NOTE | 2018-01-18 12:31 | P.DS ---
Date of admission: 01/16/18 05:12 Primary care physician: UNKNOWN Brief History from admission: 72-year-old female for past medical history of diabetes type 2, chronic pain syndrome was brought in as a Sarmiento act from local assisted living facility for initial evaluation for possible GI bleed as patient has black stool. However per ED physician a false-positive fecal occult blood tests stand from patient taking iron supplement, which patient denied. During my exam , patient was complaining of hemorrhoidal pain and requesting something to take care of the pain. States she is on some narcotics prescribed by her PCP. Apparently, in her current assisted living facility, patient has been trying to break in the medicine cabinet. Per EMR, she broke into another patient's room. Since admission, patient has been refusing medical care DS: Diagnosis - Discharge Diagnosis (1) Delusion Status: Resolved (2) Bizarre behavior Status: Acute (3) Drug-seeking behavior Status: Chronic DS: Summary Hospital Course: While in hospital, patient was treated for Initially admitted for GI bleed H&H currently stable, and patient had a false positive FOBT likely due to iron supplements At this point, there is no need for GI consultation Bizarre behavior Acute mood disorder Appreciate input from psychiatry, and Sarmiento act was lifted Anxiety and depression Continue outpatient medications Hyperlipidemia, hypertension, dementia Continue outpatient medications DVT prophylaxis: Bilateral SCDs - Time Spent with Patient Total time spent providing and/or coordinating discharge services: Greater than 30 minutes - Quality: VTE Deep Vein Thrombosis/Pulmonary Embolism Present on Admission: No Exam Vital signs: Vital Signs 01/17/18 19:28 01/17/18 20:35 01/18/18 00:40 Temperature 98 F 98.5 F 98.5 F Pulse Rate 68 74 81 Respiratory Rate 16 16 Blood Pressure 117/55 L 149/64 H 126/59 L Pulse Oximetry 96 96 95 01/18/18 01:54 01/18/18 08:00 01/18/18 08:44 Temperature 98 F Pulse Rate 85 Respiratory Rate 18 16 Blood Pressure 136/62 Pulse Oximetry 95 95 01/18/18 09:00 01/18/18 09:51 01/18/18 11:15 Temperature 99.2 F Pulse Rate 97 H Respiratory Rate 16 17 16 Blood Pressure 128/57 L Pulse Oximetry 97 01/18/18 11:25 Temperature Pulse Rate Respiratory Rate 16 Blood Pressure Pulse Oximetry Intake & Output 01/17/18 01/18/18 01/18/18 18:59 06:59 18:59 Intake Total 240 / 240 Balance 240 / 240 Weight 41.9 kg Intake: Oral 240 / 240 Other: # Incontinent Voids 1 Date of Last Bowel Movement 01/17/18 01/18/18 # Bowel Movements 1 # Incontinent Bowel Movements 1 Narrative: GENERAL: NAD SKIN: Warm and dry. HEAD: Normocephalic. EYES: No scleral icterus. No injection or drainage. NECK: Supple, trachea midline. No JVD or lymphadenopathy. CARDIOVASCULAR: Regular rate and rhythm without murmurs, gallops, or rubs. RESPIRATORY: Breath sounds equal bilaterally. No accessory muscle use. GASTROINTESTINAL: Abdomen soft, non-tender, nondistended. MUSCULOSKELETAL: No cyanosis, or edema. BACK: Nontender without obvious deformity. No CVA tenderness. Results Procedures completed during hospitalization: None Discharge Plan - Discharge Disposition Patient Disposition: Discharge to SNF - Discharge Condition Condition: Fair - Discharge Order Discharge Orders: Discharge Order (Routine); Ordered 01/18/18 Ordered By: Aguilar Coleman - Physicians Team Primary Care Provider: UNKNOWN, Attending Provider: Aguilar Coleman Other Providers: Tony Phelan MD ; [facility]
[2018-01-19] MEDS ORDERED: Acetaminophen 325 MG Tablet PO ONE (04:02)
[2018-01-19] MEDS: Sertraline 50 MG Tablet PO SCH (08:46)
[2018-01-19] MEDS: Ferrous Sulfate 325 MG Tablet PO SCH ×2 (08:46→20:19)
[2018-01-19] MEDS: Loratadine 10 MG Tablet PO SCH (08:48)
[2018-01-19] MEDS: Atenolol 25 MG Tablet PO SCH (08:48)
[2018-01-19] MEDS: Tiotropium Bromide 18 MCG/ACT Inhaler INH SCH (09:00)
--- NOTE | 2018-01-19 17:45 | P.PN ---
Subjective Interval history: Follow-up hemorrhoidal pain/bizarre behavior January 17, 2018-patient seen and examined, requesting pain relief for her hemorrhoid. Otherwise stable January 18, 2018-patient seen and examined, refusing to take her meds. Requesting medication for hemorrhoidal pain. Otherwise no other issues. Sarmiento act lifted by psychiatry. January 19, 2018-patient seen and examined around 9:30AM; no acute event reported overnight. Discharge disposition pending as patient could not go yesterday Physical Exam Vital signs: Vital Signs 01/18/18 20:40 01/19/18 08:00 01/19/18 12:00 Temperature 98.7 F 98.0 F 98.4 F Pulse Rate 83 88 78 Respiratory Rate 16 16 17 Blood Pressure 111/58 L 138/65 145/74 H Pulse Oximetry 97 98 97 01/19/18 16:00 Temperature 98.2 F Pulse Rate 78 Respiratory Rate 18 Blood Pressure 131/59 L Pulse Oximetry 98 Intake & Output 01/18/18 01/19/18 01/19/18 18:59 06:59 18:59 Intake Total 240 / 240 Balance 240 / 240 Intake: Oral 240 / 240 Other: # Voids 5 # Incontinent Voids 2 Date of Last Bowel Movement 01/18/18 01/18/18 # Incontinent Bowel Movements 2 Narrative: GENERAL: NAD SKIN: Warm and dry. HEAD: Normocephalic. EYES: No scleral icterus. No injection or drainage. NECK: Supple, trachea midline. No JVD or lymphadenopathy. CARDIOVASCULAR: Regular rate and rhythm without murmurs, gallops, or rubs. RESPIRATORY: Breath sounds equal bilaterally. No accessory muscle use. GASTROINTESTINAL: Abdomen soft, non-tender, nondistended. MUSCULOSKELETAL: No cyanosis, or edema. BACK: Nontender without obvious deformity. No CVA tenderness. Results - Labs CBC & Chem 7: 01/16/18 03:30 01/16/18 03:30 - Procedures None Assessment and Plan - Assessment (1) Delusion Code(s): F22 - Delusional disorders Status: Resolved (2) Bizarre behavior Code(s): R46.2 - Strange and inexplicable behavior Status: Acute (3) Drug-seeking behavior Code(s): Z76.5 - Malingerer [conscious simulation] Status: Chronic - Plan 72-year-old female Initially admitted for GI bleed H&H currently stable, and patient had a false positive FOBT likely due to iron supplements At this point, there is no need for GI consultation Bizarre behavior Acute mood disorder Appreciate input from psychiatry, and Sarmiento act was lifted Anxiety and depression Continue outpatient medications Hyperlipidemia, hypertension, dementia Continue outpatient medications DVT prophylaxis: Bilateral SCDs patient has been cleared for discharge back to SNF
[2018-01-20] MEDS: Tiotropium Bromide 18 MCG/ACT Inhaler INH SCH (10:01)
[2018-01-20] MEDS: Loratadine 10 MG Tablet PO SCH (10:01)
[2018-01-20] MEDS: Sertraline 50 MG Tablet PO SCH (10:01)
[2018-01-20] MEDS: Ferrous Sulfate 325 MG Tablet PO SCH (10:01)
[2018-01-20] MEDS: Atenolol 25 MG Tablet PO SCH (10:01)
== END 2018-01-20 13:52 ==
LOC: NEDA 21:04 → N06 21:04 → NEPE 21:04 → N06 01-16 06:17
PROVIDERS: ADMIT Hospitalist; ATTEND Hospitalist
DX: R63.4 Abnormal weight loss; Z79.899 Other long term (current) drug therapy; I10 Essential (primary) hypertension; M81.0 Age-related osteoporosis without current pathological fracture; Z76.5 Malingerer [conscious simulation]; F41.9 Anxiety disorder, unspecified; F43.24 Adjustment disorder with disturbance of conduct; K64.9 Unspecified hemorrhoids; E78.5 Hyperlipidemia, unspecified; R19.5 Other fecal abnormalities; Z79.891 Long term (current) use of opiate analgesic; Z16.24 Resistance to multiple antibiotics; G43.109 Migraine with aura, not intractable, without status migrainosus; F32.9 Major depressive disorder, single episode, unspecified; E11.9 Type 2 diabetes mellitus without complications; G89.4 Chronic pain syndrome; F03.90 Unspecified dementia, unspecified severity, without behavioral disturbance, psychotic disturbance, mood disturbance, and anxiety